=== PATIENT | male | born 2005 | race Two or more races ===

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

== ENCOUNTER 2024-03-05 12:11 | Emergency (ER) | payer MEDICAID ==
[~2024-03-05] VITALS: Ht 165.1 cm; Wt 69.7 kg
[~2024-03-05 12:11] MED LIST: DICY10CA PO
[2024-03-05 12:45] VITALS: BP 137/79; PULSE 88; RESP 14; TEMP 97.1; O2SAT 98
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
[2024-03-05] MEDS ORDERED: CEPH500C PO (13:43)
[2024-03-05] MEDS ORDERED: NAPR-746 PO (13:43)
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
== END 2024-03-05 14:02 | disposition home or self-care (01) ==
LOC: ER 12:11
DX: S00.83XA Contusion of other part of head, initial encounter (principal); Z79.899 Other long term (current) drug therapy; W18.39XA Other fall on same level, initial encounter; Y93.89 Activity, other specified; Y92.89 Other specified places as the place of occurrence of the external cause; Y99.8 Other external cause status
CPT/HCPCS: 70140